=== PATIENT | female | born 1970 | race African-American/Black ===

== ENCOUNTER 2016-09-16 11:26 | Emergency (ER) | payer OTHER ==
--- NOTE | 2016-09-16 12:12 | EDDOCDS ---
Nurse's Notes [facility] Name: Venus Tay Age: 46 yrs Sex: Female : 1970 Arrival Date: 09/16/2016 Time: 11:26 Bed Triage 2 Private MD: FARHAD Cisneros Diagnosis: Acute nasopharyngitis [common cold] Presentation: 09/16 11:30 Presenting complaint: Patient states: fever and body aches since Saturday plus nasal kr3 congestion. Seen by PCP on Saturday and started on Sudafed but not feeling better. Adult Sepsis Screening: The patient does not have new or worsening altered mentation. Patient's respiratory rate is less than 22. Systolic blood pressure is greater than 100. Patient has a qSOFA score of 0- Negative Sepsis Screen. Suicide/Homicide risk assessment- the patient denies having any suicidal and/or homicidal ideations and does not present with any other emotional, behavioral or mental health complaints. Status: The patient is a dependent. Transition of care: patient was not received from another setting of care. 11:30 Acuity: BING Level 4 kr3 11:30 Method Of Arrival: Walkin/Carried/Asstd kr3 Triage Assessment: 11:32 General: Appears in no apparent distress, comfortable, Behavior is cooperative. kr3 General: Reports fever for fatigue for. Pain: Location: head and throat and body aches Pain currently is 8 out of 10 on a pain scale. HIV screening NA for this visit Offered previously. Neurological: Level of Consciousness is awake, alert. EENT: Reports nasal congestion nasal discharge sore throat. Respiratory: Respiratory effort is even, unlabored, Reports cough that is. Derm: Skin is normal. 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 Sudafed Oral as needed (Last dose: 09/14/2016) 2. muscinex as needed (Last dose: 09/15/2016) - PMHx: none; - PSHx: Tubal ligation; - Social history: Smoking status: Patient states was never smoker of tobacco. No barriers to communication noted, The patient speaks fluent Arabic, Speaks appropriately for age. - Family history: Not pertinent. - : The pt / caregiver states he / she is not on anticoagulants. Home medication list is obtained from the patient. - Exposure Risk Screening:: None identified. Screenin:51 Screening information is obtained from the patient. Fall risk: No risks identified. js13 Assistance ADL's: requires no assistance with activities of daily living. Abuse/DV Screen: The patient / caregiver reports he/she is: not in a situation that causes fear, pain or injury. Nutritional screening: No deficits noted. Advance Directives: There is no active DNR order. home support is adequate. Vital Signs: 11:28 BP 142 / 73; Pulse 68; Resp 16; Temp 97.6(O); Pulse Ox 99% on R/A; Weight 81.65 kg; elp Height 65 in. (165.10 cm); Pain 8/10; 11:28 Body Mass Index 29.95 (81.65 kg, 165.10 cm) el Vitals: 11:28 Log In Time: September 16, 2016 at 11:26. elp ED Course: 11:27 Patient visited by Rosemarie Ramesh PCA. elp 11:27 Amelia [facility] is Private Physician. elp 11:27 Patient moved to Waiting elp 11:29 Patient visited by Rosemarie Ramesh PCA. elp 11:29 Patient moved to Pre RCE elp 11:31 Triage Initiated kr3 11:50 Patient moved to Triage 2 js13 11:51 The patient / caregiver is instructed regarding the plan of care and ED course. js13 11:51 No IV's were initiated during this patient's visit. No procedures done that require js13 assistance. 11:56 Jose Aguilar PA is [facility]. btw 11:56 Naya Gann MD is Attending Physician. btw 11:56 Patient visited by Jose Aguilar PA. btw 12:08 FARHAD Cisneros is Referral Physician. btw Order Results: There are currently no results for this order. Outcome: 12:09 Discharge ordered by Provider. btw 12:10 Discharge Assessment: Patient awake, alert and oriented x 3. No cognitive and/or js13 functional deficits noted. Patient verbalized understanding of disposition instructions. patient administered narcotics - no. The following High Risk Discharge criteria are identified: None. Discharged to home ambulatory. Condition: stable. Discharge instructions given to patient, Instructed on discharge instructions, follow up and referral plans. medication usage, Demonstrated understanding of instructions, medications, Pt was receptive of discharge instructions/ teaching. No special radiology studies were completed. Property :Personal belongings accompany Pt. 12:10 Prescriptions given X 2. js13 12:12 Patient left the ED. js13 Signatures: Tianna Matos,RN RN kr3 Jose Aguilar PA PA btw Sullivan, Jennifer, RN RN js13 Rosemarie Ramesh, MINI SENIOR PROCESS ANALYST elp MTDD
--- NOTE | 2016-09-16 12:12 | EDDOCDS ---
Physician Documentation [facility] Name: Venus Tay Age: 46 yrs Sex: Female : 1970 Arrival Date: 09/16/2016 Time: 11:26 Bed Triage 2 Private MD: FARHAD Cisneros Disposition: 09/16/16 12:09 Discharged to Home/Self Care. Impression: Acute nasopharyngitis [common cold]. - Condition is Stable. - Discharge Instructions: Upper Respiratory Infection, Adult, Viral Infections, Cool Mist Vaporizers. - Prescriptions for benzonatate 200 mg Oral Capsule - take 1 capsule by ORAL route 3 times per day As needed; 30 capsule. azelastine 137 mcg (0.1 %) Nasal Aerosol, [place] - spray 2 spray by INTRANASAL route 2 times per day each nostril; 1 bottle. - Medication Reconciliation, Local Pharmacy Hours form. - Follow up: FARHAD Cisneros; When: 1 - 2 days; Reason: Further diagnostic work-up, Recheck today's complaints, Continuance of care. - Problem is new. - Symptoms are unchanged. Historical: - Allergies: no known allergies; - Home Meds: 1. Sudafed Oral as needed (Last dose: 09/14/2016) 2. muscinex as needed (Last dose: 09/15/2016) - PMHx: none; - PSHx: Tubal ligation; - Social history: Smoking status: Patient states was never smoker of tobacco. No barriers to communication noted, The patient speaks fluent Mohawk, Speaks appropriately for age. - Family history: Not pertinent. - : The pt / caregiver states he / she is not on anticoagulants. Home medication list is obtained from the patient. - Exposure Risk Screening:: None identified. 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 (165.10 cm); Pain 8/10; 11:28 Body Mass Index 29.95 (81.65 kg, 165.10 cm) elp Signatures: Tianna Matos RN RN kr3 Jose Aguilar PA PA btw Sullivan,Fanny,RN RN js13 MTDD
--- NOTE | 2016-09-18 13:13 | EDDOCDS ---
Nurse's Notes [facility] Name: Venus Tay Age: 46 yrs Sex: Female : 1970 Arrival Date: 09/16/2016 Time: 11:26 Bed Triage 2 Private MD: FARHAD Cisneros Diagnosis: Acute nasopharyngitis [common cold] Presentation: 09/16 11:30 Presenting complaint: Patient states: fever and body aches since Saturday plus nasal kr3 congestion. Seen by PCP on Saturday and started on Sudafed but not feeling better. Adult Sepsis Screening: The patient does not have new or worsening altered mentation. Patient's respiratory rate is less than 22. Systolic blood pressure is greater than 100. Patient has a qSOFA score of 0- Negative Sepsis Screen. Suicide/Homicide risk assessment- the patient denies having any suicidal and/or homicidal ideations and does not present with any other emotional, behavioral or mental health complaints. Status: The patient is a dependent. Transition of care: patient was not received from another setting of care. 11:30 Acuity: BING Level 4 kr3 11:30 Method Of Arrival: Walkin/Carried/Asstd kr3 Triage Assessment: 11:32 General: Appears in no apparent distress, comfortable, Behavior is cooperative. kr3 General: Reports fever for fatigue for. Pain: Location: head and throat and body aches Pain currently is 8 out of 10 on a pain scale. HIV screening NA for this visit Offered previously. Neurological: Level of Consciousness is awake, alert. EENT: Reports nasal congestion nasal discharge sore throat. Respiratory: Respiratory effort is even, unlabored, Reports cough that is. Derm: Skin is normal. 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 Sudafed Oral as needed (Last dose: 09/14/2016) 2. muscinex as needed (Last dose: 09/15/2016) - PMHx: none; - PSHx: Tubal ligation; - Social history: Smoking status: Patient states was never smoker of tobacco. No barriers to communication noted, The patient speaks fluent Latvian, Speaks appropriately for age. - Family history: Not pertinent. - : The pt / caregiver states he / she is not on anticoagulants. Home medication list is obtained from the patient. - Exposure Risk Screening:: None identified. Screenin:51 Screening information is obtained from the patient. Fall risk: No risks identified. js13 Assistance ADL's: requires no assistance with activities of daily living. Abuse/DV Screen: The patient / caregiver reports he/she is: not in a situation that causes fear, pain or injury. Nutritional screening: No deficits noted. Advance Directives: There is no active DNR order. home support is adequate. Vital Signs: 11:28 BP 142 / 73; Pulse 68; Resp 16; Temp 97.6(O); Pulse Ox 99% on R/A; Weight 81.65 kg; elp Height 65 in. (165.10 cm); Pain 8/10; 11:28 Body Mass Index 29.95 (81.65 kg, 165.10 cm) el Vitals: 11:28 Log In Time: September 16, 2016 at 11:26. elp ED Course: 11:27 Patient visited by Rosemarie Ramesh PCA. elp 11:27 Amelia [facility] is Private Physician. elp 11:27 Patient moved to Waiting elp 11:29 Patient visited by Rosemarie Ramesh PCA. elp 11:29 Patient moved to Pre RCE elp 11:31 Triage Initiated kr3 11:50 Patient moved to Triage 2 js13 11:51 The patient / caregiver is instructed regarding the plan of care and ED course. js13 11:51 No IV's were initiated during this patient's visit. No procedures done that require js13 assistance. 11:56 [facility]. btw 11:56 Naya Gann MD is Attending Physician. btw 11:56 Patient visited by Jose Aguilar PA. btw 12:08 FARHAD Cisneros is Referral Physician. btw 13:43 T-Sheet-- Draft Copy was scanned into [employer] and attached to record. [facility] 14:04 [facility] Payment Agreement was scanned into [employer] and attached to record. lg Order Results: There are currently no results for this order. Outcome: 12:09 Discharge ordered by Provider. btw 12:10 Discharge Assessment: Patient awake, alert and oriented x 3. No cognitive and/or js13 functional deficits noted. Patient verbalized understanding of disposition instructions. patient administered narcotics - no. The following High Risk Discharge criteria are identified: None. Discharged to home ambulatory. Condition: stable. Discharge instructions given to patient, Instructed on discharge instructions, follow up and referral plans. medication usage, Demonstrated understanding of instructions, medications, Pt was receptive of discharge instructions/ teaching. No special radiology studies were completed. Property :Personal belongings accompany Pt. 12:10 Prescriptions given X 2. js13 12:12 Patient left the ED. js13 Signatures: Marry Murdock, Reg Reg lg Tianna Matos,RN RN kr3 Jose Aguilar PA PA btw Sullivan, Jennifer,RN RN js13 Rosemarie Ramesh, Maria Del Carmen [place] Chart Complete MTDLam
--- NOTE | 2016-09-18 13:13 | EDDOCDS ---
Physician Documentation [facility] Name: Venus Tay Age: 46 yrs Sex: Female : 1970 Arrival Date: 09/16/2016 Time: 11:26 Bed Triage 2 Private MD: FARHAD Cisneros Disposition: 09/16/16 12:09 Discharged to Home/Self Care. Impression: Acute nasopharyngitis [common cold]. - Condition is Stable. - Discharge Instructions: Upper Respiratory Infection, Adult, Viral Infections, Cool Mist Vaporizers. - Prescriptions for benzonatate 200 mg Oral Capsule - take 1 capsule by ORAL route 3 times per day As needed; 30 capsule. azelastine 137 mcg (0.1 %) Nasal Aerosol, [place] - spray 2 spray by INTRANASAL route 2 times per day each nostril; 1 bottle. - Medication Reconciliation, Local Pharmacy Hours form. - Follow up: FARHAD Cisneros; When: 1 - 2 days; Reason: Further diagnostic work-up, Recheck today's complaints, Continuance of care. - Problem is new. - Symptoms are unchanged. Historical: - Allergies: no known allergies; - Home Meds: 1. Sudafed Oral as needed (Last dose: 09/14/2016) 2. muscinex as needed (Last dose: 09/15/2016) - PMHx: none; - PSHx: Tubal ligation; - Social history: Smoking status: Patient states was never smoker of tobacco. No barriers to communication noted, The patient speaks fluent Pashto, Speaks appropriately for age. - Family history: Not pertinent. - : The pt / caregiver states he / she is not on anticoagulants. Home medication list is obtained from the patient. - Exposure Risk Screening:: None identified. 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 (165.10 cm); Pain 8/10; 11:28 Body Mass Index 29.95 (81.65 kg, 165.10 cm) elp MDM: 13:43 T-Sheet-- Draft Copy was scanned into [employer] and attached to record. [facility] 14:04 [facility] Payment Agreement was scanned into [employer] and attached to record. lg 15:38 Financial registration complete. gjb Signatures: Marry Murdock, Bruno Reg lg Tianna Matos,RN RN kr3 Jose Aguilar PA PA btw Sullivan, Jennifer,DAVID RN js13 Carmen Anguiano Sarah [facility] The chart was reviewed and I authenticate all verbal orders and agree with the evaluation and treatment provided.Attachments: 13:43 T-Sheet-- Draft Copy [facility] 14:04 [facility] Payment Agreement lg Chart Complete MTDD
--- NOTE | 2016-09-18 13:13 | EDDOCDS ---
Physician Documentation [facility] Name: Venus Tay Age: 46 yrs Sex: Female : 1970 Arrival Date: 09/16/2016 Time: 11:26 Bed Triage 2 Private MD: FARHAD Cisneros Disposition: 09/16/16 12:09 Discharged to Home/Self Care. Impression: Acute nasopharyngitis [common cold]. - Condition is Stable. - Discharge Instructions: Upper Respiratory Infection, Adult, Viral Infections, Cool Mist Vaporizers. - Prescriptions for benzonatate 200 mg Oral Capsule - take 1 capsule by ORAL route 3 times per day As needed; 30 capsule. azelastine 137 mcg (0.1 %) Nasal Aerosol, [place] - spray 2 spray by INTRANASAL route 2 times per day each nostril; 1 bottle. - Medication Reconciliation, Local Pharmacy Hours form. - Follow up: FARHAD Cisneros; When: 1 - 2 days; Reason: Further diagnostic work-up, Recheck today's complaints, Continuance of care. - Problem is new. - Symptoms are unchanged. Historical: - Allergies: no known allergies; - Home Meds: 1. Sudafed Oral as needed (Last dose: 09/14/2016) 2. muscinex as needed (Last dose: 09/15/2016) - PMHx: none; - PSHx: Tubal ligation; - Social history: Smoking status: Patient states was never smoker of tobacco. No barriers to communication noted, The patient speaks fluent Persian, Speaks appropriately for age. - Family history: Not pertinent. - : The pt / caregiver states he / she is not on anticoagulants. Home medication list is obtained from the patient. - Exposure Risk Screening:: None identified. 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 (165.10 cm); Pain 8/10; 11:28 Body Mass Index 29.95 (81.65 kg, 165.10 cm) elp MDM: 13:43 T-Sheet-- Draft Copy was scanned into [employer] and attached to record. [facility] 14:04 [facility] Payment Agreement was scanned into [employer] and attached to record. lg 15:38 Financial registration complete. gjb Signatures: Marry Murdock, Bruno Reg lg Tianna Matos,RN RN kr3 Jose Aguilar PA PA btw Sullivan, Jennifer,DAVID RN js13 Carmen Anguiano Sarah [facility] The chart was reviewed and I authenticate all verbal orders and agree with the evaluation and treatment provided.Attachments: 13:43 T-Sheet-- Draft Copy [facility] 14:04 [facility] Payment Agreement lg Chart Complete MTDD
== END 2016-09-16 12:12 | disposition home or self-care (01) ==
LOC: M ED 11:26
DX: J00 Acute nasopharyngitis [common cold] (principal)

== ENCOUNTER 2017-04-30 06:11 | Inpatient (IN) | payer OTHER ==
[2017-04-30] VITALS (8 sets, daily range): BP systolic 105–139; BP diastolic 56–74
[~2017-04-30] VITALS: Ht 165.1 cm; Wt 88.0 kg
[~2017-04-30 06:11] MED LIST: HAIRTAB5 PO; MULT1TAB18 PO; NAPR500T3 PO
[2017-04-30] MEDS ORDERED: LR 1,000 ML IV ONE (06:30)
[2017-04-30] MEDS ORDERED: ceFAZolin SOD 1 GM in D5W MINI-BAG PLUS 50 ML IV ONE (06:30)
[2017-04-30 06:52] LABS: MEAN CORPUSCULAR HEMOGLOBIN 30.2 pg (27.0-33.0); MEAN CORPUSCULAR VOLUME 91.6 fl (80.0-96.0); RED CELL DISTRIBUTION WIDTH 12.2 % (11.5-14.5)
[2017-04-30] MEDS ORDERED: METHYLENE BLUE 0.5% (5MG/ML) 10 ML AMP (PROVAYBLUE)(Q9968 PER 1MG) As Ordered ONE (07:13)
[2017-04-30] MEDS ORDERED: BUPIVACAINE HCL 0.25% 30 ML VIAL As Ordered ONE (07:13)
[2017-04-30] MEDS ORDERED: LIDOCAINE W/EPINEPHRINE 1% 20ML VIAL As Ordered ONE (07:13)
[2017-04-30] MEDS ORDERED: LIDOCAINE 1% MDV 20ML VIAL As Ordered ONE (07:13)
[2017-04-30] MEDS ORDERED: BUPIVACAINE HCL 0.5% 30 ML VIAL As Ordered ONE (07:13)
[2017-04-30] MEDS ORDERED: ONDANSETRON 4MG/2ML VIAL (J2405) As Ordered ONE (07:19)
[2017-04-30] MEDS ORDERED: LIDOCAINE 2% INJ 100 MG/5 ML SDV (FOR ANES.) As Ordered ONE (07:19)
[2017-04-30] MEDS ORDERED: ROCURONIUM BROMIDE 50 MG/5 ML VIAL/SYRINGE As Ordered ONE ×2 (07:19→08:43)
[2017-04-30] MEDS ORDERED: HYDROmorphone HCL 2 MG/ML 1ML VIAL (J1170) As Ordered ONE ×2 (07:19→11:14)
[2017-04-30] MEDS ORDERED: PROPOFOL 200 MG/20 ML VIAL As Ordered ONE (07:19)
[2017-04-30] MEDS ORDERED: fentaNYL 100 MCG/2 ML INJECTION (J3010) As Ordered ONE (07:20)
[2017-04-30] MEDS ORDERED: MIDAZOLAM INJ 2 MG/2 ML VIAL (J2250) As Ordered ONE (07:20)
[2017-04-30] MEDS ORDERED: BUPIVACAINE LIPOSOME/PF 1.3% 20 ML VIAL (13.3MG/ML)(EXPAREL) As Ordered ONE (08:35)
[2017-04-30] MEDS ORDERED: VASOPRESSIN INJ 20 UNITS/ML VIAL As Ordered ONE (08:36)
[2017-04-30] MEDS ORDERED: GLYCOPYRROLATE INJ 0.2 MG/ML 2 ML VIAL As Ordered ONE (09:53)
[2017-04-30] MEDS ORDERED: NEOSTIGMINE 1MG/ML 5 ML SYRINGE (J2710) As Ordered ONE (09:53)
[2017-04-30] MEDS ORDERED: KETOROLAC 60 MG/2 ML VIAL (J1885) As Ordered ONE (11:11)
[2017-04-30] MEDS ORDERED: NS 1,000 ML IV SCH (11:36)
[2017-04-30] MEDS ORDERED: MORPHINE 1MG/ML IN 0.9% NACL 100ML IV BAG IV PRN (11:45)
[2017-04-30] MEDS ORDERED: PROMETHAZINE INJ 25 MG/ML VIAL (J2550) IM PRN (11:45)
[2017-04-30] MEDS ORDERED: diphenhydrAMINE INJ 50MG/ML VIAL (J1200) IV PRN (11:45)
[2017-04-30] MEDS ORDERED: EPIDURAL/PCA KEYS XX PRN (11:45)
[2017-04-30] MEDS ORDERED: ONDANSETRON 4MG/2ML VIAL (J2405) IV PRN ×3 (11:45→12:00)
[2017-04-30] MEDS ORDERED: NALOXONE INJ 0.4 MG/1 ML VIAL (J2310) IV PRN (11:45)
[2017-04-30] MEDS ORDERED: NALBUPHINE HCL 10 MG/ML AMP (J2300) IV PRN (11:45)
[2017-04-30] MEDS ORDERED: HYDROmorphone HCL 1 MG/ML SYRINGE (J1170) IV PRN (12:00)
[2017-04-30] MEDS ORDERED: LR 1,000 ML IV SCH (12:00)
[2017-04-30] MEDS ORDERED: PERCOCET 5MG/325MG TAB PO PRN (12:00)
[2017-04-30] MEDS ORDERED: fentaNYL 100 MCG/2 ML INJECTION (J3010) IV PRN (12:00)
[2017-04-30] MEDS ORDERED: METOCLOPRAMIDE INJ 10MG/2ML VIAL (J2765) IV PRN (12:00)
[2017-04-30 12:19] LABS: MEAN CORPUSCULAR HEMOGLOBIN 30.8 pg (27.0-33.0); MEAN CORPUSCULAR HGB CONC 32.9 g/dl (32.0-36.5); MEAN CORPUSCULAR VOLUME 93.6 fl (80.0-96.0); RED CELL DISTRIBUTION WIDTH 12.5 % (11.5-14.5)
[2017-04-30] MEDS: LR 1,000 ML IV SCH (12:55)
[2017-04-30] MEDS: KETOROLAC 30 MG/ML VIAL (J1885) IV SCH (18:16)
[2017-04-30] MEDS: DOCUSATE SODIUM 100 MG CAP PO SCH (21:19)
[2017-05-01] VITALS: BP 130/65
[2017-05-01] MEDS: KETOROLAC 30 MG/ML VIAL (J1885) IV SCH ×3 (00:29→11:33)
[2017-05-01] MEDS: LR 1,000 ML IV SCH ×2 (00:30→14:01)
[2017-05-01 06:00] VITALS: BP 150/80
[2017-05-01] MEDS ORDERED: PERCOCET 5MG/325MG TAB PO PRN (07:45)
[2017-05-01] MEDS: DOCUSATE SODIUM 100 MG CAP PO SCH ×2 (08:12→20:22)
[2017-05-01] MEDS: MOM 30ML SUSPENSION UDC PO SCH (08:12)
[2017-05-01 08:45] VITALS: BP 124/57
[2017-05-01 13:00] VITALS: BP 143/70
[2017-05-01 16:45] VITALS: BP 151/72
[2017-05-01] MEDS: PERCOCET 5MG/325MG TAB PO PRN (17:54)
[2017-05-01 20:00] VITALS: BP 128/69
[2017-05-01] MEDS: IBUPROFEN 800 MG TAB PO SCH (20:22)
[2017-05-02] VITALS: BP 116/59
[2017-05-02] MEDS: PERCOCET 5MG/325MG TAB PO PRN ×2 (00:21→08:49)
[2017-05-02] MEDS: LR 1,000 ML IV SCH (04:29)
[2017-05-02] MEDS: IBUPROFEN 800 MG TAB PO SCH ×2 (04:29→12:39)
[2017-05-02 08:15] VITALS: BP 120/71
[2017-05-02] MEDS: DOCUSATE SODIUM 100 MG CAP PO SCH (08:48)
[2017-05-02] MEDS: MOM 30ML SUSPENSION UDC PO SCH (08:48)
[2017-05-02] MEDS ORDERED: IBUP-1022 PO (13:22)
[2017-05-02] MEDS ORDERED: COLA100C5 PO (13:22)
[2017-05-02] MEDS ORDERED: OXYC1TAB23 PO ×2 (13:22→15:04)
[2017-05-02] MEDS ORDERED: NORC1TAB4 PO (13:22)
--- NOTE | 2017-05-03 10:56 | DSES ---
DATE OF ADMISSION: 04/30/2017 DATE OF DISCHARGE: 05/02/2017 PREADMISSION DIAGNOSIS: Abnormal uterine bleeding and fibroid uterus. POSTOPERATIVE DIAGNOSIS: Abnormal uterine bleeding and fibroid uterus. PROCEDURE: Patient underwent a diagnostic laparoscopy, total abdominal hysterectomy, bilateral salpingectomy, cystoscopy and cystotomy repair. HOSPITAL COURSE: Patient had an unremarkable postoperative course. Tolerated fluids. Was able to advance. Tolerated oral medications. Afebrile. Vital signs stable. Gold catheter demonstrated good urine output. Nursing instructed patient on Gold catheter management and utilization of leg bag. Due to cystotomy, the patient will remain with Gold catheter for the next 2 weeks. Will coordinate with radiology to perform a cystogram prior to removal. ACTIVITIES: routine post hysterectomy. Reviewed with leg bag. DIET: as tolerated MEDICATIONS: previously provided to patient prior to surgery to include Motrin, Percocet, Colace, and Zofran. PRECAUTIONS: Precautions to include no intercourse, vaginal activity or lifting greater than 15 pounds as well as precautions in regards to Gold catheter. FOLLOW-UP: Will see back in 2 weeks, or sooner as necessary, for incision check as well as evaluation with radiology for above-mentioned cystogram. All questions answered. Extensive discussion with patient on morning of discharge. No further concerns. Moshe Quinn OB-POCKET MACHINE OPERATOR SALVADOR
--- NOTE | 2017-05-19 07:58 | RO ---
DATE OF PROCEDURE: 04/30/2017 This is the second dictation in regards to this operative case. Discussed with medical records at [facility] and unable to locate previous dictation, however, this provider did complete this dictation on day of surgery, 30 April 2017. PREPROCEDURE DIAGNOSIS: Abnormal uterine bleeding/fibroid uterus. POSTPROCEDURE DIAGNOSES: 1. Abnormal uterine bleeding/fibroid uterus. 2. Iatrogenic cystotomy. PROCEDURE: 1. Diagnostic laparoscopy. 2. Total abdominal hysterectomy. 3. Bilateral salpingectomy. 4. Cystotomy repair. SURGEON: Clif Quinn MD MOTOR VEH[employer] LIGHT ASSEMBLER: Lawrence Vazquez MD ANESTHESIA: General with Dr. Baires IV FLUIDS: 2700 mL isotonic fluid. URINE OUTPUT: 180 mL. ESTIMATED BLOOD LOSS: 150 mL. Patient is a 46-year-old, G2, P2 well known to this provider with a fibroid uterus/abnormal uterine bleeding who presents for definitive management this day via hysterectomy. Previously seen on several occasion to include work-up and extensive counseling on risks/benefits/indications/alternatives to this procedure. Patient elects to proceed and plan to take to the operating room (OR) . Again the risks/benefits/alternatives/indications were reviewed and the patient informed consent was obtained. She was taken to the operating room where general anesthesia was obtained without difficulty. She was then placed in a low lithotomy position using gel padded Paulo stirrups. An exam under anesthesia demonstrated approximately a moderate size uterus with minimal descent, no abnormal adnexal findings. The patient was then prepped and draped in a normal sterile fashion. After a time out was performed a loaiza catheter was placed in routine fashion, a sterile speculum was placed in the patient's vagina and her cervix was visualized. The single tooth tenaculum was used to grasp the anterior lip of the cervix. Then a #0 Vicryl stitch was then used for better control of the uterus. Single tooth tenaculum was then removed. A VCare medium was placed in routine fashion per manufacture's guidelines for uterine manipulation during the case. After gloves and gowns were exchanged a 5 mm trocar and sleeve were carefully introduced into the peritoneal cavity under direct visualization and a 90 degree angle while tenting of the abdominal wall. Intraperitoneal placement was confirmed and gas tubing was attached. Pressure time entrance was noted to be less than 5 mmHg, consistent with proper intraperitoneal placement. A pneumoperitoneum was established with a maximum pressure of 15 mmHg. With pneumoperitoneum established, the camera was advanced under direct visualization. Upon entry in the peritoneal cavity, structures immediately below the umbilicus were found to be free of injury. Survey of the patient's abdomen and pelvis was notable for a normal appearing liver, uterus, fallopian tubes, and ovaries were noted with a fibroid uterus that took up the vast majority of the pelvis with significant limitations on abilities to see on either side to include uterine arteries. Observed careful flow of bilateral ureters, bilateral fallopian tubes noted to have previous tubal ligation performed with bilateral normal appearing ovaries. Additional trocars on the right and left side were performed under direct laparoscopic visualization. However, at this point decision made that would due to concerns on limitation of disability and due to size of the uterus compared to the pelvic bony structure decision was made to convert to open case. At this point, anesthesia was notified as well as nursing. After VCare device removed and gloves were again exchanged. A Pfannenstiel skin incision was made to the previous C section and carried through to the underlying layer fascia using electrocautery. The fascia was entered with a Bovie cautery and extended laterally with assistance of Quevedo scissors. The underling rectus muscle and fascia were midline and peritoneal was identified, grasped with two hemostats and entered carefully with Metzenbaum scissors, was then extended superiorly/inferiorly using Bovie cautery. O'Triston-O'Sheldon Retractor was then utilized and the bowel was packed from the operating field using moist laps. The O'Triston-O'Sheldon was placed in routine fashion and open for public exposure. Two peon clamps were placed across the triple pedicle and uterus was elevated to the level of incision. The round ligaments were grasped bilaterally with Nhi's and suture ligated with #0 Vicryl and transected using electrocautery allowing anterior into the broad ligament. The anterior leaf and the posterior leaf of the broad ligament were reflected in a routine fashion on the right side. The certified surgical tech/first assistant surgeon, Lawrence Vazquez, performed using Metzenbaum scissors. The perirectal spaces were then developed and again the ureters were identified bilaterally. A windows created in the avascular plane of the broad ligament below and parallel to the IP ligament the fallopian tube and utero-ovarian ligaments were then doubled clamped and close as possible to uterine corpus, transected with hand held ligasure on both sides. Pedicles were the reinspected and excellent hemostasis was noted. The fallopian tubes were then removed by crossing with a Norma clamp and carefully taking down with handheld LigaSure device. Once these fallopian tubes cross at the cornua the fallopian tubes were removed in routine fashion. Bladder was gently dissected off the lower uterine segment and cervix using a Sponge-Stick as well Metzenbaum scissors and Bovie cautery until and endopelvic fashion was visualized. This was done without complication in routine fashion. Uterine arteries were then identified along lateral aspect of the uterus, level of the isthmus skeletonized and taken down carefully with LigaSure devise in routine fashion. Hemostasis was noted. The cardinal ligaments were then clamped, transected, and suture ligated bilaterally. Finally the uterosacral ligaments were clamped, transected, and ligated with ligasure. Hemostasis was again noted. Curved clamps were then carefully placed across the vagina just under the cervix and uterus and cervix were amputated using Barb's scissors. Anterior and posterior vaginal cuff areas were then grasped with Jitendra clamps and transfixed to the ipsilateral uterosacral and cardinal ligaments. Remainder of cuff was closed in #0 Vicryl and multiple [id number] sutures with care to incorporate the anterior pubocervical fashion in a posterior rectal fascia. The abdominous was copious irrigated with warm saline and all pedicles were noted to be hemostatic. At this point the cystoscope was primed and advanced through the urethra into the bladder. Bilateral ureteral orifices were identified and bilateral efflux of urine was noted, however, on the right aspect of the dome of the bladder difficulty visualizing completely and no bubble was noted, carefully the Loaiza catheter was removed and attention was returned abdominally noting a fair amount of appearing isotonic fluid appearing within the bladder. Upon careful reinspection with assistance of Dr. Vazquez to perform cystoscopy again noted large cystostomy approximately 3 cm in fashion that appeared sharply cut with sharp surgical edges, this was immediately identified and grasped with [place] clamps. The cystotomy was repaired in routine fashion in two layers with #3-0 Vicryl and #4-0 Vicryl without complication. Noted no leaking with continuation of cystotomy. At this point, the cystoscope was removed and the Loaiza was reinserted. The abdomen again was copiously irrigated with warm saline and noted to be without complications. All packing and instruments were removed. The fascia was reapproximated with #0 Vicryl in a running fashion. Subcutaneous layer was closed with #3-0 Vicryl in an interrupted fashion. Skin was closed with #4-0 Monocryl in a subcuticular fashion without issues. Manual exam was performed of the vagina and demonstrate excellent suspension and elevation and sweep was performed and confirmed no retained foreign objects in the vagina. At completion of the case sponge, lap, needle, and instrument counts correct time two. Patient taken to the postanesthesia care unit (PACU) in stable condition. Prior to incision patient underwent routine preoperative prophylactic antibiotics. Loaiza catheter in place. Moshe Quinn OB-PIE CUTTER KOURTNEYD
== END 2017-05-02 15:00 | disposition home or self-care (01) | DRG 743 ==
LOC: M OR 06:11 → M PED 12:54
PROVIDERS: ADMIT Student in an Organized Health Care Education/Training Program; ATTEND Student in an Organized Health Care Education/Training Program
PROC: 0UTC0ZZ Resection of Cervix, Open Approach (ICD-10-PCS; 2017-04-30)
PROC: 0UT70ZZ Resection of Bilateral Fallopian Tubes, Open Approach (ICD-10-PCS; 2017-04-30)
PROC: 0TQB8ZZ Repair Bladder, Via Natural or Artificial Opening Endoscopic (ICD-10-PCS; 2017-04-30)
PROC: 0UT90ZZ Resection of Uterus, Open Approach (ICD-10-PCS; principal; 2017-04-30 07:30)
DX: N93.9 Abnormal uterine and vaginal bleeding, unspecified (principal); D25.9 Leiomyoma of uterus, unspecified

== ENCOUNTER 2017-05-12 10:31 | Emergency (ER) | payer OTHER ==
[~2017-05-12] VITALS: Ht 165.1 cm; Wt 88.6 kg
[~2017-05-12 10:31] MED LIST changes: +COLA100C5 PO; +IBUP-1022 PO; +NORC1TAB4 PO; +OXYC1TAB23 PO
[2017-05-12] MEDS ORDERED: NS 1,000 ML IV ONE (11:15)
[2017-05-12 11:50] LABS: BASO % 0.3 % (0.0-1.0); EOS # 0.4 K/mm3 (0.0-0.50); LARGE UNSTAINED CELL # 0.1 K/mm3 (0.0-0.4); LARGE UNSTAINED CELL % 1.7 % (0.0-4.0); LYMPH % 14.8 % (24.0-44.0); MEAN CORPUSCULAR HEMOGLOBIN 29.3 pg (27.0-33.0); MEAN CORPUSCULAR HGB CONC 31.7 g/dl (32.0-36.5); MEAN CORPUSCULAR VOLUME 92.5 fl (80.0-96.0); MONO # 0.3 K/mm3 (0.0-0.8); MONO % 4.3 % (0.0-5.0); NEUTROPHILS # 4.9 K/mm3 (1.8-7.7); PLATELET COUNT, AUTOMATED 277 k/mm3 (150-450); RED CELL DISTRIBUTION WIDTH 12.2 % (11.5-14.5); WHITE BLOOD COUNT 6.7 K/mm3 (4.0-10.0)
--- NOTE | 2017-05-12 11:58 | REP ---
Clinical: Pelvic pain. Technique: Single supine view of the abdomen and pelvis. Findings: Bowel gas pattern is nonspecific. No organomegaly. Skeletal structures are intact. There is a 7 mm calcification in the right agatha pelvis which is nonspecific and differential diagnosis includes a right ureteral stone versus phlebolith versus appendicolith. Impression: 1. Nonspecific bowel gas pattern. 2. 7 mm calcification in the right agatha pelvis. Differential diagnosis includes phleboliths versus right ureteral stone versus appendicolith. Signed by Moses Rico MD 05/12/2017 11:49 A
[2017-05-12 11:59] LABS: ANION GAP 6 MEQ/L (8-16); BLOOD UREA NITROGEN 14 MG/DL (7-18); CALCIUM LEVEL 8.8 MG/DL (8.5-10.1); CARBON DIOXIDE LEVEL 30 MEQ/L (21-32); CHLORIDE LEVEL 104 MEQ/L (98-107); CREATININE FOR GFR 1.01 MG/DL (0.55-1.02); GLOMERULAR FILTRATION RATE > 60.0 (>58); GLUCOSE, FASTING 116 MG/DL (70-105); SODIUM LEVEL 140 MEQ/L (136-145)
[2017-05-12] MEDS ORDERED: cefTRIAXone SOD 1 GM in D5W MINI-BAG PLUS 50 ML IV ONE (13:00)
[2017-05-12] MEDS ORDERED: PHENAZOPYRIDINE 100 MG TAB PO ONE (13:00)
[2017-05-12 13:29] VITALS: BP 115/65
[2017-05-12] MEDS ORDERED: PYRI1TAB5 PO (13:29)
[2017-05-12] MEDS ORDERED: CIPR-249 PO (13:29)
== END 2017-05-12 13:37 | disposition home or self-care (01) ==
LOC: M ED 10:31
DX: N30.00 Acute cystitis without hematuria (principal)
CPT/HCPCS: 74000; 80048; 81001; 85025; 87088; 87186; 96361; 96365; 99283; J0696

== ENCOUNTER → 2017-05-15 | Outpatient (CLI) | payer OTHER ==
[~2017-05-15] MED LIST changes: +CIPR-249 PO; +CYSTO-CONRAY II 17.2% 250ML VIAL (Q9958) As Ordered ONE; +PYRI1TAB5 PO
--- NOTE | 2017-05-15 14:42 | REP ---
CYSTOGRAM WITH FLUOROSCOPY: HISTORY: Hysterectomy. Rule out leakage. Remove Gold catheter if negative. TECHNIQUE: The patient's existing Gold catheter was connected to gravity infusion and 150 mL of Cysto-Conray was infused. Fluoroscopic PA, bilateral oblique, and right side down lateral views were obtained. Bladder faria are intact. The fluoroscopy time is 17 seconds. Postvoid view after catheter removal shows complete emptying. IMPRESSION: Unremarkable cystogram via Gold catheter. Signed by Jonathon Cruz MD 05/15/2017 06:36 P
== END ==
LOC: M RAD 12:28
PROVIDERS: ATTEND Student in an Organized Health Care Education/Training Program
DX: Z98.890 Other specified postprocedural states (principal); Z90.710 Acquired absence of both cervix and uterus
CPT/HCPCS: 74430; Q9958

== ENCOUNTER → 2017-11-07 | Outpatient (CLI) | payer OTHER | LOC: M RAD 08:45 | DX: Z12.31 Encounter for screening mammogram for malignant neoplasm of breast (principal) ==